=== PATIENT | female | born 2000 | race African-American/Black ===

== ENCOUNTER 2023-05-21 11:09 | Emergency (ER) | payer MEDICAID ==
[~2023-05-21] VITALS: Ht 170.2 cm; Wt 79.4 kg
[2023-05-21 11:15] VITALS: BP 92/53; PULSE 73; RESP 18; TEMP 97.8; O2SAT 100
[2023-05-21] MEDS ORDERED: FLONAS NS (14:45)
[2023-05-21] MEDS ORDERED: PROM118S5 PO (14:45)
[2023-05-21] MEDS ORDERED: AMOX1TAB8 PO (14:45)
[2023-05-21] MEDS ORDERED: HYDR10TA1 PO (14:52)
[2023-05-21] MEDS ORDERED: LEVO0.124 PO (14:52)
[2023-05-21] MEDS ORDERED: DESM0.1T PO (14:52)
[2023-05-21 15:08] VITALS: BP 92/53; PULSE 73; RESP 18; TEMP 97.8; O2SAT 100
== END 2023-05-21 15:09 | disposition home or self-care (01) ==
LOC: MED 11:09
DX: J32.9 Chronic sinusitis, unspecified (principal); Z76.0 Encounter for issue of repeat prescription; Z79.899 Other long term (current) drug therapy
CPT/HCPCS: 71045; 81025; 99283